=== PATIENT | female | born 1990 | race Caucasian/White ===

== ENCOUNTER 2024-06-16 07:22 | Inpatient (IN) | payer OTHER, MEDICAID, SELFPAY ==
[2024-06-15 22:20] VITALS: BMI 36.3
[2024-06-15 22:40] VITALS: BP 119/63; PULSE 75
[2024-06-15 23:14] VITALS: BP 118/70; PULSE 80
[2024-06-15 23:30] VITALS: BP 123/58; PULSE 74
[2024-06-15 23:44] VITALS: BP 105/63; PULSE 80
[2024-06-15 23:59] VITALS: BP 108/59; PULSE 77
[2024-06-16] VITALS (43 sets, daily range): BP systolic 101–142; BP diastolic 53–81; PULSE 68–95; RESP 15–16; TEMP 36.5–36.7; O2SAT 95–97
[2024-06-16] MEDS: miSOPROStol 100 mcg tablet 25 MCG VAGINAL (08:16)
--- NOTE | 2024-06-16 08:18 | PM.OPHPUD ---
Labor & Delivery H&P Update Date of Procedure: June 16, 2024 Date H&P Performed: 06/09/24 Changes to previous documentation: The patient is 41 weeks presenting for a induction Admission Diagnosis: Other information: The patient is a 33-year-old 3 para 2-0-0-2 at 41 weeks estimated stational age presented for a scheduled an induction. Her has been unremarkable. Her blood type is O+. Her antibody screen is negative. Her infectious disease profile is within normal limits with exception of an HPV positive. Her drug screen was negative. Her urine was GBS positive. She is rubella immune. Related Problem List Diagnoses (1) 41 weeks gestation of : I anticipate routine induction and spontaneous vaginal delivery. A&P Assessment and plan (1) 41 weeks gestation of : Status: Acute
[2024-06-16 08:40] LABS: Basophils % 0.3 %; Eosinophils # 0.1 10^3/uL (0.0-0.8); Eosinophils % 0.7 %; Lymphocytes % 22.4 %; Mean Corpuscular HGB Conc 33.4 g/dL (30-55); Mean Corpuscular Hemoglobin 31.5 pg (27-33); Mean Corpuscular Volume 94.3 fl (85-98); Mean Platelet Volume 11.9 fL (7.4-10.4); Monocytes # 0.8 10^3/uL (0.2-0.9); Monocytes % 8.4 %; Neutrophils # 6.17 10^3/uL (1.8-7.7); Neutrophils % 67.8 %; Nucleated Red Blood Cells % 0 %; Platelet Count 129 10^3/cmm (157-399); Red Blood Count 3.71 10^6/uL (3.85-5.65); Red Cell Distribution Width 15.4 % (12.1-15.1)
[2024-06-16] MEDS: ampicillin 2,000 MG in sodium chloride 0.9% (plus) 50 ML 100 MG IV (10:30)
[2024-06-16] MEDS: oxytocin 30 UNIT/500 ML BAG IV (12:18)
[2024-06-16] MEDS: ampicillin 1,000 MG in sodium chloride 0.9% (plus) 50 ML 100 MG IV (14:28)
[2024-06-16] MEDS: ondansetron 2 mg/ML SDV 2 mL 4 MG IVP (18:07)
--- NOTE | 2024-06-16 19:03 | PM.DELIVERY ---
Delivery Note: Date of delivery: June 16, 2024 Pre-delivery diagnoses: 33-year-old 3 para 2-0-0-2 at 41 weeks estimated gestational age induced due to postdates. Post-delivery diagnoses: Status post spontaneous vaginal delivery Procedure: Spontaneous vaginal delivery Delivering Physician: Aniceto Nolasco Estimated blood loss (mL): 75 Pre-Delivery Course: The patient presented to the hospital for induction. She was placed on Cytotec 25 mcg x 1. She was then changed to Pitocin. Pitocin was increased to 20. An amniotomy was performed. She then progressed to complete without difficulty. Delivery: DELIVERY: The patient progressed to complete without difficulty. She delivered a female with a weight of 6 pounds 14 ounces with Apgars of 8, 8. The baby was delivered from the MUKUL position and placed on the mother's abdomen. The cord was then clamped and cut. There was no nuchal cord. There was no meconium. The placenta and 3 vessel cord were delivered intact shortly thereafter. The perineum and vaginal vault were carefully examined. No lacerations were noted. Both the mother and the baby were in stable condition. Post-Delivery Status: Good A&P Assessment and plan (1) 41 weeks gestation of : I anticipate routine care. (2) Spontaneous vaginal delivery: Coding Level of Care Code Acute Code for Chg Fwd Diagnoses 41 weeks gestation of O48.0; Z3A.41 Spontaneous vaginal delivery O80
[2024-06-16] MEDS: ibuprofen 800 mg tablet PO (21:12)
[2024-06-17] VITALS (7 sets, daily range): BP systolic 98–128; BP diastolic 60–84; PULSE 62–84; RESP 14–16; TEMP 36.3–36.8; O2SAT 96–98
[2024-06-17 06:47] LABS: Hematocrit 33.2 % (36-47); Mean Corpuscular HGB Conc 33.7 g/dL (30-55); Mean Corpuscular Hemoglobin 31.2 pg (27-33); Mean Corpuscular Volume 92.5 fl (85-98); Platelet Count 113 10^3/cmm (157-399); Red Blood Count 3.59 10^6/uL (3.85-5.65); Red Cell Distribution Width 14.9 % (12.1-15.1); White Blood Count 9.38 10^3/uL (3.29-11.43)
--- NOTE | 2024-06-17 06:49 | P.DS_ITS ---
Discharge Providers [employer] Date of Admission: 06/16/24 07:22 Date of Discharge: 06/18/24 Attending Provider at Admission: Aniceto Nolasco MD Attending Provider at Discharge: Aniceto Nolasco MD Diagnoses at Discharge Discharge Diagnosis (1) 41 weeks gestation of : Status: Resolved (2) Spontaneous vaginal delivery: Status: Resolved Reason for Visit Reason for Visit: IOL Hospital Course Hospital Course The patient presented to the hospital for induction due to postdates. She was placed on Cytotec 25 mcg x 1. She was then placed on Pitocin. An amniotomy was performed. She then progressed to complete within an hour and had an unremarkable vaginal delivery of a healthy appearing female infant. Her course has been unremarkable. Her bleeding has been within normal limits. Her pain has been well-controlled. She is formula feeding her baby. T here have been no concerns. Information Peripartum Data: Delivery Method: Vaginal Physical Exam Narrative: The patient is alert. She appears comfortable. Her heart has a regular rate and rhythm with no murmurs appreciated. Lungs are clear to auscultation bilaterally. Her fundus is firm and below the umbilicus. History History History 3 Term 2 0 Miscarriages/Ectopic 0 Living Children 2 Discharge Data Studies Completed and Pending Pending at discharge Category Date Time Status Retype for Patiets ABO/Rh Routine Lab 06/16/24 06:20 Received Laboratory Results WBC 9.38 10^3/uL (3.29-11.43) 06/17/24 06:20 RBC 3.59 10^6/uL (3.85-5.65) L 06/17/24 06:20 Hgb 11.20 g/dL (11.27-16.99) L 06/17/24 06:20 Hct 33.2 % (36-47) L 06/17/24 06:20 MCV 92.5 fl (85-98) 06/17/24 06:20 MCH 31.2 pg (27-33) 06/17/24 06:20 MCHC 33.7 g/dL (30-55) 06/17/24 06:20 RDW 14.9 % (12.1-15.1) 06/17/24 06:20 Plt Count 113 10^3/cmm (157-399) L 06/17/24 06:20 MPV 12.0 fL (7.4-10.4) H 06/17/24 06:20 Neut % (Auto) 67.8 % 06/15/24 23:00 Lymph % (Auto) 22.4 % 06/15/24 23:00 [place] % (Auto) 8.4 % 06/15/24 23:00 Eos % (Auto) 0.7 % 06/15/24 23:00 Baso % (Auto) 0.3 % 06/15/24 23:00 Neut # (Auto) 6.17 10^3/uL (1.8-7.7) 06/15/24 23:00 Lymph # (Auto) 2.0 10^3/uL (0.8-4.8) 06/15/24 23:00 [place] # (Auto) 0.8 10^3/uL (0.2-0.9) 06/15/24 23:00 Eos # (Auto) 0.1 10^3/uL (0.0-0.8) 06/15/24 23:00 Baso # (Auto) 0.0 10^3/uL (0.0-0.1) 06/15/24 23:00 Nucleated RBC % (auto) 0 % 06/15/24 23:00 Nucleated RBCs # 0.0 /100WBC 06/15/24 23:00 Blood Type O Positive 06/15/24 23:00 Rho(D) Type Rh positive 06/15/24 23:00 Antibody Screen Negative 06/15/24 23:00 Vitals Last Vital Signs Temp 97.9 F 06/17/24 06:15 Pulse 76 06/17/24 06:15 Resp 16 06/17/24 06:15 BP 118/71 06/17/24 06:15 Pulse Ox 97 06/17/24 06:15 O2 Del Method Room Air 06/17/24 06:15 Results Labs OB ([facility]): Obstetrics US 04/02/24 Blood Type O Positive 06/15/24 Antibody Screen Negative 06/15/24 Hct 33.2 % (36-47) L 06/17/24 Hgb 11.20 g/dL (11.27-16.99) L 06/17/24 Rho(D) Type Rh positive 06/15/24 Plt Count 113 10^3/cmm (157-399) L 06/17/24 Discharge Plan Discharge Patient Disposition: Home Prescriptions: New ibuprofen 800 mg Tablet 800 mg PO TID Qty: 45 0RF Discharge Orders: Discharge Order (Routine); Ordered 06/17/24 Ordered By: Aniceto Nolasco Referrals: Aniceto Nolasco MD [Physician] - 07/30/24 9:50 am Discharge Diet: Usual diet Discharge Activity: Limit activity as instructed Patient Instructions: Depression (DC), Opioid Safety (DC), Preeclampsia and Eclampsia After Delivery (GEN), Hemorrhage (DC), OB Discharge Report, OB Food/Drug Interaction Guide, OB Care at Home, Opioid Safety, OB Vaginal Deliveries, Abnormal Bleeding Discharge Attestations [employer] Time Spent in Discharge Care*: less than 30 min Coding Level of Care Code Acute Code for Chg Fwd Diagnoses 41 weeks gestation of O48.0; Z3A.41 Spontaneous vaginal delivery O80
[2024-06-17] MEDS: PRENATAL VIT NO.130/IRON/FOLIC 1 EACH TABLET PO (08:45)
[2024-06-17] MEDS: ibuprofen 800 mg tablet PO ×3 (08:45→20:48)
[2024-06-17] MEDS: docusate sodium 100 mg Capsule PO ×2 (08:45→20:48)
== END 2024-06-17 23:35 | disposition home or self-care (01) | DRG 806 ==
LOC: OPOB 07:23 → OBGYN 07:23
PROVIDERS: Admitting Provider Family Medicine; Visit Provider Family Medicine
DX: O48.0 Post-term pregnancy (principal); O98.32 Other infections with a predominantly sexual mode of transmission complicating childbirth; Z37.0 Single live birth; Z3A.41 41 weeks gestation of pregnancy; A63.0 Anogenital (venereal) warts; O99.824 Streptococcus B carrier state complicating childbirth
CPT/HCPCS: 36415; 59025; 59409; 85025; 85027; 86850; 86900; 96374; 99211; J0290; J2405; J2590